=== PATIENT | male | born 1950 | race Caucasian/White ===

== ENCOUNTER 2017-12-06 11:09 | Emergency (ER) | payer BC, MEDICARE ==
[2017-12-06 12:41] LABS: #Basophils 0.1 thou/uL (0.0-0.2); #Eosinphils 0.1 thou/uL (0.0-0.7); #Lymphocytes 1.4 thou/uL (1.20-3.40); #Monocytes 0.6 thou/uL (0.11-0.59); #Neutrophils 4.6 thou/uL (1.40-6.50); %Basophils 0.8 % (0.0-1.0); %Eosinophils 0.8 % (0.0-10.0); %Lymphocytes 20.4 % (21.0-51.0); %Monocytes 8.7 % (0.0-10.0); %Neutrophils 69.4 % (42.0-75.0); Mean Corpuscular HGB CONC 33.1 g/dL (32.0-36.0); Mean Corpuscular Hemoglobin 30.9 pg (27.0-31.0); Mean Corpuscular Volume 93.4 fl (80.0-94.0); Mean Platelet Volume 7.5 fL (7.4-10.4); Platelet Count 128 thou/uL (130-400); RBC Distribution Width 11.8 % (11.5-14.5); Red Blood Cell (RBC) Count 4.84 mill/uL (4.70-6.10); White Blood Cell (WBC) Count 6.7 thou/uL (4.8-10.8)
[2017-12-06 12:53] LABS: CK (CPK) 148 U/L (30-200); Lipase 20 U/L (8-78)
[2017-12-06 12:58] LABS: CKMB 2.4 ng/mL (0-6.6); Troponin I Less than 0.010 ng/mL (< 0.028)
[2017-12-06 15:07] LABS: ALT (SGPT) 22 U/L (8-55); AST (SGOT) 19 U/L (5-34); Albumin 3.8 g/dL (3.4-4.8); Alkaline Phosphatase 49 U/L (40-150); Anion Gap 15 mmol/L (10-20); BUN (Urea Nitrogen) 16 mg/dL (8.4-25.7); Bilirubin, Total 0.7 mg/dL (0.2-1.2); Calc. Creatinine Clearance 0 mL/min (70-130); Calcium 9.3 mg/dL (7.8-10.44); Carbon Dioxide 17 mmol/L (23-31); Chloride 112 mmol/L (98-107); Estimated GFR-MDRD 79; Globulin 3.1 g/dL (2.4-3.5); Glucose 88 mg/dL (80-115); Potassium 3.9 mmol/L (3.5-5.1); Protein, Total 6.9 g/dL (5.8-8.1); Sodium 140 mmol/L (136-145)
[2017-12-06] MEDS ORDERED: ISOVUE-370 76%-LOCM 1 ML ONE (15:13)
--- NOTE | 2017-12-06 16:19 | CT ---
CTA THORAX WITH CONTRAST CTA ABDOMEN WITH CONTRAST: (Computed Tomographic Angiography, chest(noncoronary) with contrast material, and image postprocessin g) (Computed Tomographic Angiography, abdomen with contrast material, and image postprocessing) Date: 12/06/17 HISTORY: 67-year-old male with nausea, emesis, diaphoresis, hypertension, and abdominal pain. History of aorti c aneurysm. Rule out dissection or rupture. TECHNIQUE: IV injection of iodinated contrast: 100 mL [id number]. Arterial phase bolus chasing technique. Scan acquisition from top of top of aortic arch to iliac crests. Coronal and sagittal 3D MIP reconstructions. FINDINGS: There is fusiform ectasia of the ascending thoracic aorta, with caliber of 4.9 x 4.9 cm (aneurysm of ascending aorta is defined as 5.0 cm or greater). Atherosclerotic calcification of LAD and LCX. Caliber of the aortic arch is 3.1 cm, within normal limits. Caliber of cleve cending thoracic aorta and entire abdominal aorta are within normal limits. No aortic dissection or r upture. Mild atherosclerotic calcification of the descending thoracic aorta and abdominal aorta, and mild to moderate atherosclerotic plaque involving bilateral common iliac arteries and internal iliac arteries, without aneurysm, dissection, or rupture. There is mild to moderate stenosis at origin of c eliac artery. No stenosis at origin of superior mesenteric artery or bilateral renal arteries. There is very good opacification of all pulmonary artery branches. There is no pulmonary thromboembol ism. Trachea and main bronchi are patent and clear. There is an approximately 5 mm triangular nodular pulmonary density broadly abutting the lateral inferior pleural surface, nonspecific. Otherwise, the lungs are clear. No pleural effusion or pneumothorax. No mediastinal lymphadenopathy. Minimally enla rged bilateral hilar lymph nodes. Mild or borderline cardiomegaly. Within the limitations of an arter ial phase only scan, no definite abnormality is identified involving the bilateral kidneys, adrenals, pancreas, liver, or spleen. Those portions of the colon and small intestine outside of the pelvic ca vity demonstrate no obvious acute abnormality. No small bowel dilation. No free fluid within the abdo louis cavity. No pneumoperitoneum. 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 High grade degenerative disc disease at L4-5 and L5-S1. Multilevel degenerative disc disease in the thoracic spine. Mild loss of height of some thoracic vertebral bodies, probably chronic. No definite acute compression fracture identified. IMPRESSION: 1. Ectasia of the ascending aorta, 4.9 cm. 2. No aortic dissection or rupture. 3. Abdominal aorta is normal in caliber. 4. Mild to moderate atherosclerosis of abdominal aorta and branches. 5. Bilateral L5 spondylolysis causing Grade I spondylolisthesis at L5-S1. 6. Multilevel degenerative disc disease in the thoracic spine and lumbar spine. 7. Nonspecific small left lower lobe pleural-based pulmonary nodule. jn[] POS: MAGUI
== END 2017-12-06 16:53 | disposition home or self-care (01) ==
LOC: ERS 11:09
DX: R42 Dizziness and giddiness (principal); R11.2 Nausea with vomiting, unspecified; R10.9 Unspecified abdominal pain; I25.10 Atherosclerotic heart disease of native coronary artery without angina pectoris; E78.5 Hyperlipidemia, unspecified; F17.290 Nicotine dependence, other tobacco product, uncomplicated; Z79.899 Other long term (current) drug therapy
CPT/HCPCS: 36415; 71275; 80053; 82550; 82553; 83690; 83880; 84484; 85025; 93005